=== PATIENT | female | born 1930 | race Caucasian/White ===

== ENCOUNTER 2017-02-12 18:39 | Emergency (ER) | payer MEDICARE, OTHER ==
--- NOTE | 2017-02-12 19:03 | EDM.PDOC ---
ED HPI GENERAL MEDICAL PROBLEM - General Chief Complaint: Back Pain or Injury Stated Complaint: FALL EARLIER TODAY Time Seen by Provider: 02/12/17 18:58 Source of Information: Reports: Patient, EMS Notes Reviewed, [facility] Records History Limitations: Reports: Altered Mental Status - History of Present Illness INITIAL COMMENTS - FREE TEXT/NARRATIVE: 86 YO WF presents from alf after a fall. Pt has severe dementia and currently has no complaints. No signs of trauma. No sign of head injury. Pt with mild low back pain with transferring and movement. Onset: Today Duration: Hour(s): (5) Location: Reports: Back Quality: Reports: Ache Severity: Mild Improves with: Reports: Rest Worsens with: Reports: Movement Associated Symptoms: Reports: No Other Symptoms - Related Data Allergies Allergy/AdvReac Type Severity Reaction Status Date / Time No Known Drug Allergies Allergy Cannot Verified 02/12/17 19:13 Remember Home Meds: Home Meds Donepezil [Aricept] 10 mg PO DAILY 05/08/15 [History] Acetaminophen [Tylenol] 650 mg PO QID 12/09/15 [History] Cholecalciferol (Vitamin D3) [Vitamin D] 50,000 unit PO Q14D 12/09/15 [History] LORazepam [Ativan] 0.25 mg PO BEDTIME 12/09/15 [History] LORazepam [Ativan] 0.5 mg PO DAILY 12/09/15 [History] risperiDONE [RisperiDAL] 0.25 mg PO BID 02/12/17 [History] traMADol [Ultram] 50 mg PO Q6H PRN #15 tablet 02/12/17 [Rx] Past Medical History - Past Health History Medical/Surgical History: Denies Medical/Surgical History Neurological History: Reports: Alzheimers Disease Psychiatric History: Reports: Anxiety, Depression Social & Family History - Tobacco Use Smoking Status *Q: Never Smoker Used Tobacco, but Quit: No Second Hand Smoke Exposure: No - Recreational Drug Use Recreational Drug Use: No ED ROS GENERAL - Review of Systems Review Of Systems: See Below Constitutional: Reports: No Symptoms HEENT: Reports: No Symptoms Respiratory: Reports: No Symptoms Cardiovascular: Reports: No Symptoms Endocrine: Reports: No Symptoms GI/Abdominal: Reports: No Symptoms : Reports: No Symptoms Musculoskeletal: Reports: Back Pain Skin: Reports: No Symptoms Neurological: Reports: No Symptoms Psychiatric: Reports: No Symptoms Hematologic/Lymphatic: Reports: No Symptoms Immunologic: Reports: No Symptoms ED EXAM,LOWER BACK PAIN/INJURY - Physical Exam Exam: See Below Exam Limited By: Altered Mental Status General Appearance: Alert, WD/WN, No Apparent Distress Nose: Normal Inspection, Normal Mucosa, No Blood Throat/Mouth: Normal Inspection, Normal Lips, Normal Teeth, Normal Gums, Normal Oropharynx, Normal Voice, No Airway Compromise Head: Atraumatic, Normocephalic Neck: Normal Inspection, Supple, Non-Tender, Full Range of Motion Respiratory/Chest: No Respiratory Distress, Lungs Clear, Normal Breath Sounds, No Accessory Muscle Use, Chest Non-Tender Cardiovascular: Normal Peripheral Pulses, Regular Rate, Rhythm, No Edema, No Gallop, No JVD, No Murmur, No Rub GI/Abdominal: Normal Bowel Sounds, Soft, Non-Tender, No Organomegaly, No Distention, No Abnormal Bruit, No Mass Back Exam: Vertebral Tenderness (low back pain on palpation ) Extremities: Normal Inspection, Normal Range of Motion, Non-Tender, No Pedal Edema, Normal Capillary Refill Neurological: Alert, CN II-XII Intact, No Motor/Sensory Deficits Course - Vital Signs Last Recorded V/S: Last Vital Signs Temp 36.8 C 02/12/17 18:45 Pulse 62 02/12/17 18:45 Resp 20 02/12/17 18:45 BP 105/60 02/12/17 18:45 Pulse Ox 98 02/12/17 18:45 - Orders/Labs/Meds Orders: Active Orders 24 hr Category Date Time Status Lumbar Spine 2 or 3V [CR] Stat Exams 02/12/17 18:56 Ordered - Radiology Interpretation Free Text/Narrative:: lumbar xray- NAD; DJD Departure - Departure Time of Disposition: 19:26 Disposition: Home, Self-Care 01 Condition: good Clinical Impression: Low back pain Qualifiers: Chronicity: acute Back pain laterality: unspecified Sciatica presence: without sciatica Qualified Code(s): M54.5 - Low back pain - Discharge Information Prescriptions: traMADol [Ultram] 50 mg PO Q6H PRN #15 tablet PRN Reason: Pain Instructions: Back Pain, Adult, [id number] Referrals: Gisela Ty MD [Primary Care Provider] - - My Orders Last 24 Hours: My Active Orders 02/12/17 18:56 Lumbar Spine 2 or 3V [CR] Stat - Assessment/Plan Last 24 Hours: My Active Orders 02/12/17 18:56 Lumbar Spine 2 or 3V [CR] Stat Assessment:: 1. low back pain from fall Plan: 1. return to alf 2. ultram 50mg po Q6 PRN pain 3. follow up with PCP for further evaluation and treatment
[2017-02-12 19:20] VITALS: BP 105/60
== END 2017-02-12 20:30 ==
LOC: KA.ED 18:39
DX: M54.5 Low back pain (principal); F41.9 Anxiety disorder, unspecified; F32.9 Major depressive disorder, single episode, unspecified; G30.9 Alzheimer's disease, unspecified; F02.80 Dementia in other diseases classified elsewhere, unspecified severity, without behavioral disturbance, psychotic disturbance, mood disturbance, and anxiety
CPT/HCPCS: 72100; 99283; 99284

== ENCOUNTER 2017-02-22 00:58 | Emergency (ER) | payer MEDICARE, OTHER ==
--- NOTE | 2017-02-22 01:24 | EDM.PDOC ---
ED HPI GENERAL MEDICAL PROBLEM - General Chief Complaint: General Stated Complaint: fall, found on floor Time Seen by Provider: 02/22/17 01:13 Source of Information: Reports: EMS, Residential Records History Limitations: Reports: Altered Mental Status - History of Present Illness INITIAL COMMENTS - FREE TEXT/NARRATIVE: 86 yo WF with severe dementia who was found on the floor at the senior living complaining of right hip and back pain. Pt was found lying on her left side on the floor. Pt without signs of head injury. Pt had a fall 1 week ago and complained of back pain then. 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 Onset: Today Location: Reports: Lower Extremity, Right Quality: Reports: Ache Severity: Moderate Improves with: Reports: Rest Worsens with: Reports: Movement Associated Symptoms: Reports: Confusion. Denies: Chest Pain, Headaches, Nausea/ Vomiting, Shortness of Breath - Related Data Allergies Allergy/AdvReac Type Severity Reaction Status Date / Time No Known Drug Allergies Allergy Cannot Verified 02/22/17 01:47 Remember Home Meds: Home Meds Donepezil [Aricept] 10 mg PO DAILY@1600 05/08/15 [History] Acetaminophen [Tylenol] 650 mg PO QID PRN 12/09/15 [History] Cholecalciferol (Vitamin D3) [Vitamin D] 50,000 unit PO Q14D 12/09/15 [History] LORazepam [Ativan] 0.25 mg PO BEDTIME 12/09/15 [History] LORazepam [Ativan] 0.5 mg PO DAILY@0800 12/09/15 [History] risperiDONE [RisperiDAL] 0.25 mg PO BID 02/12/17 [History] traMADol [Ultram] 50 mg PO Q6H PRN #15 tablet 02/12/17 [Rx] Hydrocodone/Acetaminophen [Hydrocodon-Acetaminophen 5-325] 1 each PO Q4HR PRN # 15 tablet 02/22/17 [Rx] Magnesium Hydroxide [Milk of Magnesia] 30 ml PO DAILY PRN 02/22/17 [History] Past Medical History - Past Health History Medical/Surgical History: Denies Medical/Surgical History [employer] History: Reports: Neurological History: Reports: Alzheimers Disease Psychiatric History: Reports: Anxiety, Depression - Past Surgical History Cardiovascular Surgical History: Reports: Other (See Below) Other Cardiovascular Surgeries/Procedures: prosthetic heart valve GI Surgical History: Reports: Colonoscopy, Polypectomy Social & Family History - Tobacco Use Smoking Status *Q: Never Smoker Used Tobacco, but Quit: No Second Hand Smoke Exposure: No - Recreational Drug Use Recreational Drug Use: No ED ROS GENERAL - Review of Systems Review Of Systems: See Below Constitutional: Reports: No Symptoms HEENT: Reports: No Symptoms Respiratory: Reports: No Symptoms Cardiovascular: Reports: No Symptoms Endocrine: Reports: No Symptoms GI/Abdominal: Reports: No Symptoms : Reports: No Symptoms Musculoskeletal: Reports: Leg Pain (right sided) Skin: Reports: No Symptoms Neurological: Reports: No Symptoms Psychiatric: Reports: No Symptoms Hematologic/Lymphatic: Reports: No Symptoms Immunologic: Reports: No Symptoms ED EXAM, GENERAL - Physical Exam Exam: See Below Exam Limited By: No Limitations General Appearance: Alert, WD/WN, No Apparent Distress Nose: Normal Inspection, Normal Mucosa, No Blood Throat/Mouth: Normal Inspection, Normal Lips, Normal Teeth, Normal Gums, Normal Oropharynx, Normal Voice, No Airway Compromise Head: Atraumatic, Normocephalic Neck: Normal Inspection, Supple, Non-Tender, Full Range of Motion Respiratory/Chest: No Respiratory Distress, Lungs Clear, Normal Breath Sounds, No Accessory Muscle Use, Chest Non-Tender Cardiovascular: Normal Peripheral Pulses, Regular Rate, Rhythm, No Edema, No Gallop, No JVD, No Murmur, No Rub GI/Abdominal: Normal Bowel Sounds, Soft, Non-Tender, No Organomegaly, No Distention, No Abnormal Bruit, No Mass Extremities: Leg Pain (right leg) Neurological: Alert Psychiatric: Normal Affect, Normal Mood Skin Exam: Warm, Dry, Intact, Normal Color, No Rash Lymphatic: No Adenopathy Course - Vital Signs Last Recorded V/S: Last Vital Signs Temp 36.6 C 02/22/17 01:12 Pulse 75 02/22/17 01:12 Resp 18 02/22/17 01:12 BP 99/52 L 02/22/17 01:12 Pulse Ox 94 L 02/22/17 01:12 - Orders/Labs/Meds Orders: Active Orders 24 hr Category Date Time Status Chest 2V [CR] Stat Exams 02/22/17 01:10 Stop Req Hip Min 2V w Pelvis Bi [CR] Stat Exams 02/22/17 01:08 Ordered Lumbar Spine 2 or 3V [CR] Stat Exams 02/22/17 01:51 Taken Meds: Medications Discontinued Medications Generic Name Dose Route Start Last Admin Trade Name Freq PRN Reason Stop Dose Admin Diazepam 5 mg 02/22/17 01:51 Valium IVPUSH 02/22/17 01:52 ONETIME ONE Ketorolac Tromethamine 30 mg 02/22/17 01:51 Toradol IVPUSH 02/22/17 01:52 ONETIME ONE Methylprednisolone Sodium Succinate 125 mg 02/22/17 01:51 Solu-Medrol IVPUSH 02/22/17 01:52 ONETIME ONE - Radiology Interpretation Free Text/Narrative:: pelvis- NAD right hip _NAD lumbar spine- DJD no change from 02/12/17 Departure - Departure Time of Disposition: 02:08 Disposition: Home, Self-Care 01 Condition: Good Clinical Impression: Back pain Qualifiers: Back pain location: low back pain Chronicity: acute Sciatica presence: without sciatica Fall Qualifiers: Encounter type: initial encounter Qualified Code(s): W19.XXXA - Unspecified fall, initial encounter - Discharge Information Prescriptions: Hydrocodone/Acetaminophen [Hydrocodon-Acetaminophen 5-325] 1 each PO Q4HR PRN # 15 tablet PRN Reason: Pain Instructions: Lumbosacral Strain, Fall Prevention in the Home, [id number] Referrals: Maritza Ty MD [Primary Care Provider] - Forms: ED Department Discharge - My Orders Last 24 Hours: My Active Orders 02/22/17 01:08 Hip Min 2V w Pelvis Bi [CR] Stat 02/22/17 01:10 Chest 2V [CR] Stat 02/22/17 01:51 Lumbar Spine 2 or 3V [CR] Stat - Assessment/Plan Last 24 Hours: My Active Orders 02/22/17 01:08 Hip Min 2V w Pelvis Bi [CR] Stat 02/22/17 01:10 Chest 2V [CR] Stat 02/22/17 01:51 Lumbar Spine 2 or 3V [CR] Stat Assessment:: 1. Fall 2. Dementia 3. low back pain Plan: 1. return to [place] 2. hydrocodone for pain PRN 3. follow up with clinic for further evaluation and treatment
[2017-02-22] MEDS ORDERED: Ketorolac 30 MG/ML SDV IVPUSH ONE (01:51)
[2017-02-22] MEDS ORDERED: methylPREDNISolone Sodium Succinate 125 MG/2 ML SDV IVPUSH ONE (01:51)
[2017-02-22] MEDS ORDERED: Sodium Chloride 0.9% 5 ML Syringe FLUSH PRN (02:00)
[2017-02-22 02:35] VITALS: BP 105/55
== END 2017-02-22 03:20 ==
LOC: KA.ED 00:58
DX: M54.5 Low back pain (principal); F41.9 Anxiety disorder, unspecified; F32.9 Major depressive disorder, single episode, unspecified; G30.9 Alzheimer's disease, unspecified; F02.80 Dementia in other diseases classified elsewhere, unspecified severity, without behavioral disturbance, psychotic disturbance, mood disturbance, and anxiety; Z95.2 Presence of prosthetic heart valve; Z98.890 Other specified postprocedural states; Z79.899 Other long term (current) drug therapy; W19.XXXA Unspecified fall, initial encounter
CPT/HCPCS: 72100; 73521; 96374; 96375; 99285; J1885; J2930; J3360; 99284